=== PATIENT | female | born 1980 | race Caucasian/White ===

== ENCOUNTER 2016-09-23 10:22 | Emergency (ER) | payer OTHER ==
[~2016-09-23] VITALS: Ht 167.6 cm; Wt 77.2 kg
[~2016-09-23 10:22] MED LIST: ADVIL200 MG PO; BUSPAR15 MG PO; DEPO-PROVER150 MG/ML IM; FLEXERIL10 MG PO; LEVAQUIN750 MG PO; MEDROL DOSEPAK4 MG PO; MOTRIN600 MG PO; Motrin PO; NOHOMEMEDS; TESSALON200 MG PO; ULTRAM50 MG PO; ZOFRAN4 MG PO; ZOLOFT50 MG PO; ZOVIRAX200 MG PO; [UNRECOGNIZED DRUG - OTHER]
[2016-09-23] MEDS ORDERED: POLYTRIM EYE DR10 ML BOTH EYES (14:06)
[2016-09-23 14:22] VITALS: BP 102/70
== END 2016-09-23 14:24 | disposition home or self-care (01) ==
LOC: EME 10:22
DX: H10.9 Unspecified conjunctivitis (principal); F17.200 Nicotine dependence, unspecified, uncomplicated
CPT/HCPCS: 99281; 99283